=== PATIENT | female | born 1990 | race Caucasian/White ===

== ENCOUNTER 2025-06-27 06:45 | Inpatient (IN) | payer OTHER ==
[2025-06-27] MEDS: LACTATED RINGERS SOLUTION 1,000 ML/1,000 ML INFUS.BAG IV SCH (07:30)
[2025-06-27 07:55] LABS: ABSOLUTE IMMATURE GRANULOCYTES 0.09 x10^3/uL (0.0-0.031); BASOPHILS # 0.03 x10^3/uL (0.01-0.08); EOSINOPHIL % 0.6 % (0.7-5.8); EOSINOPHILS # 0.07 x10^3/uL (0.04-0.36); MCHC 32.2 g/dl (32.2-35.5); MEAN CELL VOLUME 91.0 fl (79.4-94.8); MEAN PLT VOLUME 10.0 fl (9.4-12.3); MONOCYTE # 0.64 x10^3/uL (0.24-0.86); MONOCYTE % 5.5 % (4.7-12.5); RDW 16.1 % (12.1-16.8)
[2025-06-27 08:09] VITALS: BMI 41.5
[2025-06-27 08:31] LABS: INR 0.95 (0.83-1.09); PROTHROMBIN TIME (PATIENT) 10.5 SEC (9.7-13.0)
[2025-06-27 08:34] LABS: ACTIVATED PTT 24.1 SECONDS (25.2-36.5)
[2025-06-27 08:38] LABS: GLUCOSE,RANDOM 112 mg/dL (74-106)
[2025-06-27 08:39] LABS: CO2 23 mmol/L (21-32)
[2025-06-27 08:43] LABS: CREATININE 0.66 mg/dL (0.55-1.3)
[2025-06-27 09:12] LABS: HIV INTERPRETATION NEGATIVE (NEGATIVE)
[2025-06-27 09:43] LABS: TOT PROT 6.2 g/dl (6.4-8.2)
[2025-06-27 09:45] LABS: ALK PHOS 197 U/L (40-150)
[2025-06-27 09:47] LABS: SGPT/ALT 12 U/L (0-55)
[2025-06-27 09:48] LABS: SGOT/AST 27 U/L (5-34)
[2025-06-27] MEDS: DINOPROSTONE 10 MG VAGINAL SUPPOSITORY VG ONE (09:55)
[2025-06-28] MEDS ORDERED: OXYTOCIN 30 UNITS in 0.9% NS 30 UNIT/500 ML INFUS.BAG IVPB ONE (00:25)
[2025-06-28] MEDS: OXYTOCIN 30 UNITS in 0.9% NS 30 UNIT/500 ML INFUS.BAG IVPB SCH (00:30)
[2025-06-28] MEDS ORDERED: PROMETHAZINE HCL 25 MG/1 ML VIAL ONE (08:41)
[2025-06-28] MEDS ORDERED: BUTORPHANOL TARTRATE 2 MG/ML VIAL ONE (08:41)
[2025-06-28] MEDS: PROMETHAZINE HCL 25 MG/1 ML VIAL IVPB ONE (08:55)
[2025-06-28] MEDS: BUTORPHANOL TARTRATE 2 MG/ML VIAL IVPB ONE (08:55)
[2025-06-28] MEDS: ELECTROLYTE-148 SOLN 500 ML IV SCH ×2 (12:15→13:15)
[2025-06-28] MEDS ORDERED: FENTANYL/BUPIVACAINE/NS/PF - PCEA - 50 ML DISP.SYRIN EP ONE ×3 (12:16→19:15)
[2025-06-28] MEDS ORDERED: FENTANYL CITRATE/PF 50 MCG/ML VIAL ONE ×2 (12:17→20:53)
[2025-06-28] MEDS: FENTANYL/BUPIVACAINE/NS/PF - PCEA - 50 ML DISP.SYRIN EP SCH (12:40)
[2025-06-28] MEDS ORDERED: NALOXONE HCL 0.4 MG/ML VIAL IVPUSH PRN (13:08)
[2025-06-28] MEDS ORDERED: AMPICILLIN SODIUM 2 GM VIAL ONE (20:08)
[2025-06-28] MEDS: AMPICILLIN - 2 GM in SODIUM CHLORIDE 100 ML IVPB ONE (20:10)
[2025-06-28] MEDS: CITRIC ACID/SODIUM CITRATE 30 ML UNIT-DOSE CUP PO ONE (20:30)
[2025-06-28] MEDS ORDERED: ELECTROLYTE-148 SOLN 500 ML IV ONE (20:30)
[2025-06-28] MEDS ORDERED: GENTAMICIN SO4 80 MG/2 ML VIAL ONE (20:38)
[2025-06-28] MEDS: GENTAMICIN 80 MG PREMIXED IVPB 80 MG/100 ML BAG IVPB SCH (20:45)
[2025-06-28] MEDS ORDERED: AZITHROMYCIN IVPB 500 MG/250 ML BAG IVPB ONE (20:49)
[2025-06-28] MEDS ORDERED: KETOROLAC TROMETHAMINE 30 MG/1 ML VIAL ONE (20:51)
[2025-06-28] MEDS ORDERED: METOCLOPRAMIDE HCL INJECTION 10 MG/2 ML VIAL ONE (20:51)
[2025-06-28] MEDS ORDERED: DEXAMETHASONE SOD PHOSPHATE 4 MG/1 ML VIAL ONE (20:51)
[2025-06-28] MEDS ORDERED: ONDANSETRON 4 MG/2 ML VIAL ONE (20:51)
[2025-06-28] MEDS ORDERED: OXYTOCIN 10 UNITS/ML VIAL ONE (20:51)
[2025-06-28] MEDS ORDERED: morphine SULFATE/PF 1 MG/2 ML (2cc Syringe - QUVA) ONE (20:53)
[2025-06-28] MEDS ORDERED: ELECTROLYTE-148 SOLN 1,000 ML IV SCH (21:00)
[2025-06-28] MEDS ORDERED: ACETAMINOPHEN INJECTION 100 ML ONE (21:29)
[2025-06-28] MEDS ORDERED: OXYTOCIN 20 UNITS in 0.9% NS 20 UNIT/1,000 ML INFUS.BAG IV ONE (21:54)
[2025-06-28] MEDS: OXYTOCIN 20 UNITS in 0.9% NS 20 UNIT/1,000 ML INFUS.BAG IV SCH (22:00)
[2025-06-28 22:09] LABS: CORD BASE EXCESS -9.1 mmol/L (0-2); CORD HCO3 18.5 mmHg (20-29); CORD PCO2 46.1 mmHg (30-78); CORD pH 7.222 (7.14-7.44)
[2025-06-28 22:12] LABS: CORD BASE EXCESS -8.800 mmol/L (0-2); CORD HCO3 20.7 mmHg (20-29); CORD PCO2 58.3 mmHg (30-78); CORD pH 7.168 (7.14-7.44)
[2025-06-28] MEDS ORDERED: METHYLERGONOVINE MALEATE 0.2 MG/1 ML AMP IM PRN (22:17)
[2025-06-28] MEDS ORDERED: IBUPROFEN (CALDOLOR) 800 MG/200 ML PREMIX BAGS IVPB ONE (23:42)
[2025-06-28] MEDS: IBUPROFEN 800 MG/8 ML IJ IVPB PRN (23:45)
[2025-06-29] MEDS: ACETAMINOPHEN 1000 MG/100 ML BAG IVPB PRN (03:26)
[2025-06-29] MEDS: CEFAZOLIN SODIUM 2 GM in DEXTROSE 5%-WATER 100 ML IVPB SCH (05:33)
[2025-06-29 07:09] LABS: MCHC 32.8 g/dl (32.2-35.5); MEAN CELL VOLUME 90.2 fl (79.4-94.8); MEAN PLT VOLUME 10.2 fl (9.4-12.3); RDW 16.0 % (12.1-16.8)
[2025-06-29] MEDS: ENOXAPARIN NA (PORCINE) 40 MG/0.4 ML DISP.SYRIN SQ SCH (10:22)
[2025-06-29] MEDS: ACETAMINOPHEN 325 MG TABLET (FP) PO PRN (17:47)
[2025-06-29] MEDS: SIMETHICONE 80 MG TAB.CHEW (FP) PO PRN (20:29)
[2025-06-29] MEDS ORDERED: BISACODYL 10 MG SUPP.RECT RC PRN (22:17)
[2025-06-30] MEDS: IBUPROFEN 600 MG TABLET (FP) PO PRN (08:39)
[2025-06-30] MEDS: IBUPROFEN 600 MG TABLET (FP) PO SCH (15:00)
[2025-06-30] MEDS: ACETAMINOPHEN 500 MG TABLET (FP) PO PRN (16:24)
[2025-07-01 06:23] VITALS: RESP 18
[2025-07-01 07:09] LABS: ABSOLUTE IMMATURE GRANULOCYTES 0.10 x10^3/uL (0.0-0.031); BASOPHILS # 0.04 x10^3/uL (0.01-0.08); EOSINOPHIL % 1.9 % (0.7-5.8); EOSINOPHILS # 0.21 x10^3/uL (0.04-0.36); MCHC 31.1 g/dl (32.2-35.5); MEAN CELL VOLUME 93.0 fl (79.4-94.8); MEAN PLT VOLUME 9.7 fl (9.4-12.3); MONOCYTE # 0.80 x10^3/uL (0.24-0.86); MONOCYTE % 7.1 % (4.7-12.5); RDW 16.6 % (12.1-16.8)
[2025-07-02 10:45] VITALS: BP 137/62; PULSE 99; TEMP 98.1
== END 2025-07-02 15:00 | disposition home or self-care (01) | DRG 787 ==
LOC: JLDR 06:45 → J3W 06-29 00:45
PROVIDERS: ADMIT Obstetrics & Gynecology; ATTEND Obstetrics & Gynecology
PROC: 10D00Z1 Extraction of Products of Conception, Low, Open Approach (ICD-10-PCS; principal; 2025-06-28)
DX: O48.0 Post-term pregnancy (principal); O75.2 Pyrexia during labor, not elsewhere classified; Z3A.40 40 weeks gestation of pregnancy; O76 Abnormality in fetal heart rate and rhythm complicating labor and delivery; Z37.0 Single live birth
CPT/HCPCS: 36415; 36600; 80048; 80076; 82803; 82977; 85025; 85610; 85730; 86780; 86850; 86900; 86901; 87389; 88307-TC